=== PATIENT | female | born 1975 | race Caucasian/White ===

== ENCOUNTER 2022-02-25 10:10 | Inpatient (IN) ==
[2022-02-25] MEDS ORDERED: SODIUM CHLORIDE 0.9% 1,000 ML IV STA (10:48)
[2022-02-25] MEDS ORDERED: PIPERACILLIN/TAZOBACTAM 3,375 MG in SODIUM CHLORIDE 0.9% 100 ML IV STA (10:50)
[2022-02-25] MEDS: ONDANSETRON 4 MG/2 ML VIAL IV STA ×2 (11:12→11:17)
[2022-02-25 11:18] LABS: Basophils % 0.2 % (0.0-0.8); Eosinophils % 0.2 % (0.00-10.9); Hematocrit 39.5 VOL% (35.7-47.0); Hemoglobin 12.5 GM/DL (12.0-16.0); Immature Granulocytes % 0.5 %; Immature Granulocytes Absolute 0.09 #; Lymphocytes # 0.7 10*3/uL (1.4-4.0); Lymphocytes % 4.1 % (21.3-54.2); Mean Corpuscular HGB Conc 31.6 GM/DL (32-36); Mean Corpuscular Volume 86.4 FL (87-102); Mean Platelet Volume 9.9 FL (9.6-12.0); Monocytes # 1.7 10*3/uL (0.11-0.8); Monocytes % 10.1 % (1.7-12.7); Neutrophils % 84.9 % (38.7-73.9); Platelet Count 333 T/CUMM (130-400); Red Blood Count 4.57 MC/CUMM (3.8-5.5); Red Cell Distribution Width 14.6 % (9.3-17.3); White Blood Count 17.3 T/CUMM (4-12)
[2022-02-25 11:32] LABS: Mucus,Urine Occasional /LPF (Occasional); RBC,Urine 7 /HPF (0-4); Squamous Epithelial Cell,Urine Occasional /HPF (0-10)
[2022-02-25 11:33] LABS: Bilirubin,Urine Negative (Negative); Blood, Urine Moderate mg/dL (Negative); Glucose,Urine (UA) 100 mg/dL (Negative); Ketones,Urine Negative (Negative); Nitrite,Urine Positive (Negative); Protein,Urine 100 mg/dL (Negative); Urine Appearance Cloudy (Clear); Urine Color Orange (Yellow); Urine pH 5.5 (4.5-8.0)
[2022-02-25 11:43] LABS: Albumin 3.5 G/DL (3.4-5.0); Bilirubin,Total 1.2 MG/DL (0.20-1.00); Calcium 9.2 MG/DL (8.5-10.1); Potassium 3.2 MMOL/L (3.5-5.1); Total Protein 7.5 G/DL (6.4-8.2)
[2022-02-25 11:52] LABS: Lymphocytes 2 % (20-55); Total Cells Counted 100
[2022-02-25 11:53] LABS: Platelet Estimate Adequate
[2022-02-25] MEDS ORDERED: POTASSIUM CHLORIDE 20 MEQ TABLET PO STA (12:40)
[2022-02-25] MEDS ORDERED: ONDANSETRON 4 MG/2 ML VIAL IV STA (13:05)
[2022-02-25] MEDS ORDERED: MORPHINE 2 MG/1 ML SYRINGE IV STA (13:05)
[2022-02-25] MEDS: SODIUM CHLORIDE 0.9% 1,000 ML IV SCH ×2 (13:23→21:06)
[2022-02-25] MEDS: PANTOPRAZOLE 40 MG TABLET PO SCH (14:44)
[2022-02-25] MEDS: ONDANSETRON 4 MG/2 ML VIAL IV PRN ×2 (14:44→21:05)
[2022-02-25] MEDS ORDERED: MORPHINE 2 MG/1 ML SYRINGE IV PRN (15:59)
[2022-02-25] MEDS: DOCUSATE SODIUM 100 MG CAPSULE PO SCH ×2 (17:42→21:00)
[2022-02-25] MEDS: ENOXAPARIN 40 MG/0.4 ML SYRINGE SUBCUT SCH (21:02)
[2022-02-25] MEDS: PIPERACILLIN/TAZOBACTAM 3,375 MG in SODIUM CHLORIDE 0.9% 100 ML IV SCH (21:02)
[2022-02-26] MEDS: ONDANSETRON 4 MG/2 ML VIAL IV PRN ×2 (01:15→20:04)
[2022-02-26] MEDS: PIPERACILLIN/TAZOBACTAM 3,375 MG in SODIUM CHLORIDE 0.9% 100 ML IV SCH ×3 (04:13→20:06)
[2022-02-26 05:19] LABS: Basophils % 0.2 % (0.0-0.8); Eosinophils % 0.1 % (0.00-10.9); Hematocrit 34.3 VOL% (35.7-47.0); Hemoglobin 10.7 GM/DL (12.0-16.0); Immature Granulocytes % 0.4 %; Immature Granulocytes Absolute 0.05 #; Lymphocytes # 2.1 10*3/uL (1.4-4.0); Lymphocytes % 15.4 % (21.3-54.2); Mean Corpuscular HGB Conc 31.2 GM/DL (32-36); Mean Corpuscular Volume 87.3 FL (87-102); Monocytes # 1.6 10*3/uL (0.11-0.8); Monocytes % 11.5 % (1.7-12.7); Neutrophils % 72.4 % (38.7-73.9); Platelet Count 275 T/CUMM (130-400); Red Blood Count 3.93 MC/CUMM (3.8-5.5); Red Cell Distribution Width 14.5 % (9.3-17.3); White Blood Count 13.8 T/CUMM (4-12)
[2022-02-26] MEDS: SODIUM CHLORIDE 0.9% 1,000 ML IV SCH ×2 (05:24→15:24)
[2022-02-26 05:38] LABS: Albumin 2.8 G/DL (3.4-5.0); Bilirubin,Total 1.9 MG/DL (0.20-1.00); Calcium 8.5 MG/DL (8.5-10.1); Osmolality,Calculated 276.4 MOS/KG (273-304); Potassium 3.7 MMOL/L (3.5-5.1); Total Protein 6.4 G/DL (6.4-8.2)
[2022-02-26] MEDS: ACETAMINOPHEN 325 MG TABLET PO PRN ×2 (08:21→20:05)
[2022-02-26] MEDS: DOCUSATE SODIUM 100 MG CAPSULE PO SCH ×2 (08:24→20:05)
[2022-02-26] MEDS: PANTOPRAZOLE 40 MG TABLET PO SCH (08:24)
[2022-02-26] MEDS: ENOXAPARIN 40 MG/0.4 ML SYRINGE SUBCUT SCH (20:06)
[2022-02-27] MEDS: PIPERACILLIN/TAZOBACTAM 3,375 MG in SODIUM CHLORIDE 0.9% 100 ML IV SCH ×2 (04:21→12:18)
[2022-02-27] MEDS: SODIUM CHLORIDE 0.9% 1,000 ML IV SCH ×2 (04:21→07:12)
[2022-02-27 06:41] LABS: Basophils % 0.5 % (0.0-0.8); Eosinophils % 0.3 % (0.00-10.9); Hematocrit 33.3 VOL% (35.7-47.0); Hemoglobin 10.4 GM/DL (12.0-16.0); Immature Granulocytes % 0.5 %; Immature Granulocytes Absolute 0.04 #; Lymphocytes # 1.7 10*3/uL (1.4-4.0); Lymphocytes % 20.1 % (21.3-54.2); Mean Corpuscular HGB Conc 31.2 GM/DL (32-36); Mean Corpuscular Volume 86.5 FL (87-102); Mean Platelet Volume 10.2 FL (9.6-12.0); Monocytes # 1.2 10*3/uL (0.11-0.8); Monocytes % 13.4 % (1.7-12.7); Neutrophils % 65.2 % (38.7-73.9); Platelet Count 229 T/CUMM (130-400); Red Blood Count 3.85 MC/CUMM (3.8-5.5); Red Cell Distribution Width 14.6 % (9.3-17.3); White Blood Count 8.7 T/CUMM (4-12)
[2022-02-27 06:44] LABS: Calcium 8.8 MG/DL (8.5-10.1); Osmolality,Calculated 278.3 MOS/KG (273-304); Potassium 3.5 MMOL/L (3.5-5.1); Total Protein 6.7 G/DL (6.4-8.2)
[2022-02-27] MEDS: DOCUSATE SODIUM 100 MG CAPSULE PO SCH (08:13)
[2022-02-27] MEDS: PANTOPRAZOLE 40 MG TABLET PO SCH (08:13)
[2022-02-27 11:27] VITALS: BP 136/46
== END 2022-02-27 15:19 | disposition home or self-care (01) | DRG 690 ==
LOC: EDBD → EDUNIT# → N.ED 10:10 → N.EDINP 12:38 → N.3E 18:08
PROVIDERS: ADMIT Internal Medicine; ATTEND Internal Medicine